=== PATIENT | female | born 2000 | race Caucasian/White ===

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

== ENCOUNTER → 2021-04-14 03:00 | Outpatient (CLI) | payer OTHER, SELFPAY ==
--- NOTE | 2021-04-14 09:00 | DI.US_ITS ---
Exam(s) US BREAST LT LIMITED EXAM: US BREAST LT LIMITED CLINICAL HISTORY: UNSPECIFIED LUMP IN BREAST, UNSPECIFIED QUADRANT, N63.20 TECHNIQUE: Ultrasound left breast performed using standard protocol. Whole breast ultrasound with a ttention to palpable abnormality. COMPARISON: No exams were available for comparison FINDINGS: No solid or cystic masses, hypoechoic foci, areas of abnormal shadowing, or areas of skin thickening. IMPRESSION: No sonographically suspicious finding. Clinical follow-up recommended. BI-RADS Category 1 - Negative DATA REPOSITORY:
== END ==
PROVIDERS: PCP Internal Medicine; Visit Provider Nurse Practitioner Family
DX: N63.20 Unspecified lump in the left breast, unspecified quadrant (principal)
CPT/HCPCS: 76642

== ENCOUNTER 2021-05-20 17:29 | Outpatient (REF) | payer OTHER, SELFPAY ==
[2021-05-23 11:07] LABS: Hepatitis C Ab w Rflx HCV PCR Negative (Negative)
[2021-05-23 11:54] LABS: HIV-1/2 Ag & Ab Screen Negative (Negative)
== END 2021-05-20 17:30 | disposition home or self-care (01) ==
LOC: NCHCN 17:29
PROVIDERS: PCP Internal Medicine; Visit Provider Family Medicine
DX: Z11.4 Encounter for screening for human immunodeficiency virus [HIV] (principal); Z11.59 Encounter for screening for other viral diseases
CPT/HCPCS: 86803; 87389

== ENCOUNTER 2022-05-12 09:10 | Outpatient (REF) | payer BC, SELFPAY ==
--- OUTSIDE RECORDS SUMMARY | 2022-05-12 09:15 | XMS_ITS ---
Author Name Shun Llanes Address [address], [place] [id number] Organization [facility] Address [address], [place] [id number] Care Team Providers Care Gem Expert Name Role Phone Shun Llanes Unavailable [phone] PROBLEMS Type Condition ICD9-CM Code [id number] Code Onset Dates Condition Status SNOMED Code Problem Excessive and frequent menstruation with irregular cycle N92.1 Active [id number] ALLERGIES No Known Allergies ENCOUNTERS Encounter Location Date Diagnosis [address] [id number] Dec, [address] [id number] May, Encounter for routine checking of intrauterine contraceptive device (IUD) Z30.[address] [id number] Apr, Nexplanon removal Z30.46 and Encounter for insertion of mirena IUD Z30.[address] [id number] Mar, [address] [id number] Mar, Presence of (intrauterine) contraceptive device Z97.5 ; Other specified irregular menstruation N92.5 and Dysmenorrhea in the adolescent N94.[address] [id number] Jan, [address] [id number] Oct, [address] [id number] Oct, [address] [id number] July, Excessive and frequent menstruation with irregular cycle N92.1 ; Anemia, unspecified D64.9 ; Body mass index (BMI) 19.9 or less, adult Z68.1 and Encounter for surveillance of contraceptives, unspecified Z30.[address] [id number] May, [address] [id number] May, Excessive and frequent menstruation with irregular cycle N92.1 ; Anemia, unspecified D64.9 and Body mass index (BMI) 19.9 or less, adult Z68.[address] [id number] May, IMMUNIZATIONS No Known Immunizations SOCIAL HISTORY Never Assessed REASON FOR REFERRAL FUNCTIONAL STATUS PLAN OF CARE Activity Details VITAL SIGNS Height 61 in 2019-03-31 Height 61 in 2018-08-07 Height 61 in 2018-06-06 Weight 95 lb 4 oz lbs 2019-05-30 Weight 95.8 lbs 2019-04-16 Weight 94 lb 6 oz lbs 2019-03-31 Weight 92.8 lbs 2018-08-07 Weight 93 lb 2 oz lbs 2018-06-06 BMI 17.83 kg/m2 2019-03-31 BMI 17.53 kg/m2 2018-08-07 BMI 17.59 kg/m2 2018-06-06 Blood pressure systolic 104 mm Hg Blood pressure diastolic 66 mm Hg 2019-05 MEDICATIONS Medication Instructions Dosage Frequency Start Date End Date Duration Status Mirena (52 MG) 20 MCG/24HR Intrauterine 1 time as directed Apr, 1825 days Active Ferrous Sulfate 325 (65 Fe) MG Orally Once a day 1 tablet 24h Not-Roman g Ventolin HFA 108 (90 Base) MCG/ACT Inhalation every 6 hrs 2 puffs as needed 6h Active Vitamin D (Cholecalcifer ol) 25 MCG (1000 UT) Orally Once a day 1 capsule 24h Active busPIRone HCl 5 MG Orally bid 2 tablets 12h Not-Takin g Advil 200 MG Orally every 8 hours 3 capsules with food or milk as needed 8h Not-Takin g Naproxen 250 MG Orally Twice a day 1 tablet with food or milk 12h Active PROCEDURES Procedure Date Ordered Result Body Site REMOVAL NON-BIODEGRADABLE DRUG DELIVERY IMPLANT Apr IUD INSERTION Apr 16, 2019 LNG-RELEASING IUC SYS 52MG 5 YR DUR Apr 16, 2019 RESULTS Name Result Date Reference Range TSH 2018-06-06 TSH 1.14 0.45-5.33 CBC, NO DIFF 2018-06-06 WBC 6.8 4.8-10.8 RBC 4.83 4.20-5.40 HGB 13.8 12.0-16.0 HCT 40.2 37.0-47.0 MCV 83.2 81.0-99.0 MCH 28.6 27.0-31.0 MCHC 34.3 32.0-37.0 RDW-CV 12.5 11.5-14.5 PLT 280 130-400 DHEA - SULFATE ([id number]) 2018-06-06 FOLLICLE STIMULATING HORMONE 2018-06-06 FSH 9.3 FSH H INTERPRETATION FEMAL ES: Follicular: 3.9 - 8.8 mIU/mL Mid-Cycle: 4.5 - 22.5 mIU/mL Luteal: 1.8 - 5.1 mIU/mL LUTEINIZING HORMONE (LH) 2018-06-06 LH 10.9 LH H INTERPRETATION FEMAL ES: Mid-Follicular: 2 - 11 mIU/mL Mid-Cycle: TESTOSTERONE, FREE & TOTAL ([id number]) 2018-06-06 Testosterone, Serum 21 Free Testosterone(Direct) 0.5 No t Estab. THYROID PEROXIDASE AUTOABS ([id number]) 2018-06-06 Thyroid Peroxidase (TPO) Ab 11 0-26 REASON FOR VISIT CERTIFIED ALCOHOL AND DRUG COUNSELOR well woman & pap, FYI-depression, suggestions for counseling, *CERTIFIED ALCOHOL AND DRUG COUNSELOR 6 week follow up Mirena placed 04/16, Nexplanon removal, Mirena Placement, IUD prior approval, CERTIFIED ALCOHOL AND DRUG COUNSELOR discuss estrogen patches, Estradiol 0.05 MG/24HR Patch refill, FYI-Rx, Switch , Follow up to medication, Lab review., CERTIFIED ALCOHOL AND DRUG COUNSELOR CONSULT IRREGULAR MENSES REF FROM Nathan PATTERSON , Prolonged Insurance Providers Health Insurance Type Health Plan Insurance Address Health Plan Insurance Phone Health Plan Insurance Name Health Plan Coverage Dates Member ID Patient Relationship to Subscriber Patient Address Patient Phone Patient Name Patient Date of Subscriber ID Subscriber Name Subscriber Date of Group No [place] [address] [place] [id number] [place] self Miguelina Ruiz [id number]
[2022-05-12 14:05] LABS: HCT 40.6 % (36.0-46.0); HGB 13.9 g/dL (11.2-15.7); MCH 30.1 pg (27.0-33.0); MCHC 34.2 % (32.0-36.0); MCV 88 fL (80-95); MPV 11.3 fL (8.0-11.0); Platelet Count 321 10^3/uL (130-400); RBC 4.62 10^6/uL (3.93-5.22); RDW 12.3 % (11.7-14.6); RDW-SD 39.4 fL; WBC 7.78 10^3/uL (4.4-10.8)
[2022-05-12 14:38] LABS: Iron 70 ug/dL (50-170)
[2022-05-12 14:48] LABS: TSH (W/Ref FT4) 1.52 uIU/mL (0.36-3.74)
== END 2022-05-12 09:11 | disposition home or self-care (01) ==
LOC: NCHCN 09:10
PROVIDERS: PCP Internal Medicine; Visit Provider Nurse Practitioner Family
DX: F41.8 Other specified anxiety disorders (principal); R00.2 Palpitations
CPT/HCPCS: 85027; 83540; 84443

== ENCOUNTER 2022-08-09 11:13 | Outpatient (REF) | payer BC, SELFPAY ==
--- NOTE | 2022-08-09 10:00 | PAPFT_PTH ---
PATIENT: Miguelina Hand LOC: [facility]#:[id number] AGE/SX: 22/F ROOM: RE08/09/[address]: Mackenzie Velez : 2000 BED: DIS: 08/09/2022 SPEC #: [id number] RECD: 08/10/22 12:58 STATUS: KAMRYN RETory #: [id number] AMEENA: 08/09/22 10:[address]: Mackenzie Velez DEPT: [facility] Cytology RECD BY: Chantale Mccain ENTERED: 08/10/22 12:59 SP TYPE: PAPFT OTHR DR: Zelalem Trujillo Tissues: 1 - CX/ENDOCX FOR PAP SMEARS Procedures: PAP THIN PREP/[facility] Screening Comments: [id number]
== END 2022-08-09 11:14 | disposition home or self-care (01) ==
LOC: NCHCN 11:13
PROVIDERS: PCP Internal Medicine; Visit Provider Nurse Practitioner Family
DX: Z12.4 Encounter for screening for malignant neoplasm of cervix (principal); Z00.00 Encounter for general adult medical examination without abnormal findings
CPT/HCPCS: 88142

== ENCOUNTER 2024-02-13 14:36 | Outpatient (REF) | payer BC, SELFPAY ==
[2024-02-14 19:05] LABS: HIV-1/2 Ag & Ab Screen Negative (Negative)
[2024-02-14 19:17] LABS: Hepatitis C Ab w Rflx HCV PCR Negative (Negative)
[2024-02-15 12:16] LABS: Syphilis Serology (RPR) Negative (Negative)
== END 2024-02-13 14:37 | disposition home or self-care (01) ==
LOC: NCHCN 14:36
PROVIDERS: PCP Nurse Practitioner Family; Visit Provider Nurse Practitioner Family
DX: Z11.3 Encounter for screening for infections with a predominantly sexual mode of transmission (principal); Z11.4 Encounter for screening for human immunodeficiency virus [HIV]; Z11.59 Encounter for screening for other viral diseases
CPT/HCPCS: 86803; 87389; 86592

== ENCOUNTER 2024-02-19 15:04 | Outpatient (REF) | payer BC, SELFPAY ==
[2024-02-20 11:52] LABS: Chlamydia Result Negative (Negative); GC Result Negative (Negative)
== END 2024-02-19 15:05 | disposition home or self-care (01) ==
LOC: NCHCN 15:04
PROVIDERS: PCP Nurse Practitioner Family; Visit Provider Nurse Practitioner Family
DX: Z11.3 Encounter for screening for infections with a predominantly sexual mode of transmission (principal)
CPT/HCPCS: 87491; 87591

== ENCOUNTER 2024-08-20 21:49 | Outpatient (REF) | payer OTHER, SELFPAY | END 2024-08-20 21:50 | disposition home or self-care (01) | LOC: LBN 21:49 | PROVIDERS: PCP Nurse Practitioner Family; Visit Provider Physician Assistant Medical | DX: J02.9 Acute pharyngitis, unspecified (principal) | CPT/HCPCS: 87070 ==